=== PATIENT | female | born 1960 | race Caucasian/White ===

== ENCOUNTER → 2020-08-16 10:08 | Outpatient (BNVA) | payer OTHER, SELFPAY | PROVIDERS: Referring Provider Registered Nurse; Visit Provider Podiatrist Foot & Ankle Surgery | DX: M77.31 Calcaneal spur, right foot (principal); M77.32 Calcaneal spur, left foot | CPT/HCPCS: 73610 ==

== ENCOUNTER → 2020-09-27 11:13 | Outpatient (BNVA) | payer OTHER, SELFPAY | PROVIDERS: Visit Provider Podiatrist Foot & Ankle Surgery | DX: M77.31 Calcaneal spur, right foot (principal); M77.32 Calcaneal spur, left foot; Q82.5 Congenital non-neoplastic nevus; M79.673 Pain in unspecified foot | CPT/HCPCS: 73630 ==

== ENCOUNTER → 2020-10-11 15:22 | Outpatient (BNVA) | payer OTHER, SELFPAY | PROVIDERS: Visit Provider Podiatrist Foot & Ankle Surgery | DX: M19.079 Primary osteoarthritis, unspecified ankle and foot (principal); M20.21 Hallux rigidus, right foot; M77.31 Calcaneal spur, right foot; M92.61 Juvenile osteochondrosis of tarsus, right ankle; M89.8X7 Other specified disorders of bone, ankle and foot; M77.32 Calcaneal spur, left foot; M92.62 Juvenile osteochondrosis of tarsus, left ankle; Z20.822 Contact with and (suspected) exposure to COVID-19 | CPT/HCPCS: 87635 ==

== ENCOUNTER 2020-10-15 09:27 | Day surgery (SDC) | payer OTHER, SELFPAY ==
[2020-10-14 11:47] VITALS: BMI 34.6
[2020-10-15] VITALS (7 sets, daily range): BP systolic 165–204; BP diastolic 83–91; PULSE 74–88; RESP 12–19; TEMP 36.1–36.6; O2SAT 90–100
--- NOTE | 2020-10-15 | SCC_ITS ---
Procedure Done: Cheilectomy right foot. Hadley's resection with Achilles tendon debridement right lower extremity. < 1 seconds of fluoroscopic guidance, for a cumulative dose of 0.005 mGy, was provided to Dr. Latham by the radiology department. C-arm images of the RIGHT foot were saved for the patient's permanent record. [facility]
[2020-10-15] MEDS: sodium chloride 0.9% 1,000 ML 30 ML IV (10:02)
[2020-10-15] MEDS: scopolamine 1.5 Patch 1 PATCH TRANSDERMA (10:04)
[2020-10-15] MEDS: midazolam 1 mg/mL INJ 5 ML 5 MG IVP (10:26)
--- NOTE | 2020-10-15 10:35 | ANES.PREANE2 ---
Pre-Anesthetic Assessment Pre-Anesthetic Assessment: Height/Weight: Height 1.65 m Weight 94.347 kg Temp Pulse Resp BP Pulse Ox 97 F L 74 16 204/89 96 10/15/20 09:45 10/15/20 09:45 10/15/20 09:45 10/15/20 09:45 10/15/20 09:45 Preop Diagnosis: Hadley's deformity, Achilles tendinosis, hallux rigidus, exostosis, right Proposed Procedure: Operation Date: 10/15/20 11:05 Proposed Procedures p Hadley's resection with Achilles repair 43860, 99661, 92948, 33724 M76.821 M76.61 M92.61 M20.21(Right) - Nelson Latham DPM s Cheilectomy 89027, 21028, 72667, 24784 M76.821 M76.61 M92.61 M20.21(Right) - Nelson Latham DPM s Exostectomy 96655, 97753, 67925, 90311 M76.821 M76.61 M92.61 M20.21(Right) - Nelson Latham DPM s Flexor Hallucis Longus Tendon Transfer 76863, 47929, 04873, 19057 M76.821 M76.61 M92.61 M20.21(Right) - Nelson Latham DPM Familial anesthetic complications: None Was Beta Kiersten taken within 24 hours: N/A Was Clonidine taken within 24 hours: N/A Last intake: Intake Last Liquid Date 10/14/20 Last Liquid Time 23:00 Last Solid Date 10/14/20 Last Solid Time 23:00 Social: Social History: No alcohol and No tobacco Exam: Pre-Anes Outpt Exam: alert, oriented x 3, clear to auscultation bilaterally and regular rate & rhythm Airway: Cervical ROM: WNL MP: 2 Dentition: Full Anesthetic Plan: ASA status: 1 Anesthesia: General and Regional (specify below) Risk of > 500 ml blood loss (7ml/kg in children): No Meds/Allergies Current Medications: Current Medications Generic Name Dose Route Start Last Admin Trade Name Freq PRN Reason Stop Dose Admin Sodium Chloride 1,000 mls @ 30 ml s/hr 10/15/20 09:45 10/15/20 10:02 Sodium Chloride 0.9% IV 10/16/20 09:44 30 mls/hr .Q24H ANU Administration PFSH Anesthesia PFSH: Family History Other Hypertension Social History Alcohol intake: never Adopted: No Caregiver/support person: No Lives independently: No Household members: spouse Sexually active: Yes Current gender identity: Female Data Anesthesia Cardiac Studies: No Data to Display
--- NOTE | 2020-10-15 10:37 | ANES.PROC ---
Anesthesia Procedures Procedure/Date: 10/15/20 Nerve Block ^: Nerve Block 1: Main Anesthesia: general anesthesia Time Out Performed: Yes Consent: requested by attending/covering physician, from patient, from other, risks and benefits reviewed and patient agrees to proceed Nerve block location: popliteal (R) Anesthesia monitors applied: pulse oximetry, EKG, BP cuff and oxygen Nerve block position: supine Anesthetic Used: ropivicaine 0.5% and with decadron (4 mg) Amount of anesthesia used (mL): 30 Ultrasound used to: recognize landmarks Nerve Stimulator Used?: No Interscalene/Femoral BLK: 4 stimuplex 21 g needle used for position and inplane approach, visualize local anesthetic spread and no vascular puncture identified Injection: neg aspiration of heme Patient Tolerated Procedure: well and no complications Complications: none
--- NOTE | 2020-10-15 12:02 | P.HPUD_ITS ---
Surgery/Procedure H&P Update DATE OF PROCEDURE: October 15, 2020 DATE H&P PERFORMED: 09/27/20 H&P UPDATE INFORMATION: I have reviewed H&P completed within last 30 days, I have examined patient prior to procedure, No changes to prior documentation and H&P is in [facility] EMR on date indicated PREOP DIAGNOSIS: Hadley's deformity, Achilles tendinosis, hallux rigidus, exostosis, right PLANNED PROCEDURE: Operation Date: 10/15/20 11:05 Proposed Procedures p Hadley's resection with Achilles repair 39808, 58233, 82157, 66526 M76.821 M76.61 M92.61 M20.21(Right) - Nelson Latham DPM s Cheilectomy 44916, 32035, 10479, 30605 M76.821 M76.61 M92.61 M20.21(Right) - Nelson Latham DPM s Exostectomy 49989, 87781, 33655, 48115 M76.821 M76.61 M92.61 M20.21(Right) - Nelson Latham DPM s Flexor Hallucis Longus Tendon Transfer 36270, 17646, 31160, 32718 M76.821 M76.61 M92.61 M20.21(Right) - Nelson Latham DPM
--- NOTE | 2020-10-15 12:02 | W.PM.OPSUD ---
Surgery/Procedure H&P Update DATE OF PROCEDURE: October 15, 2020 DATE H&P PERFORMED: 09/27/20 H&P UPDATE INFORMATION: I have reviewed H&P completed within last 30 days, I have examined patient prior to procedure, No changes to prior documentation and H&P is in [facility] EMR on date indicated PREOP DIAGNOSIS: Hadley's deformity, Achilles tendinosis, hallux rigidus, exostosis, right PLANNED PROCEDURE: Operation Date: 10/15/20 11:05 Proposed Procedures p Hadley's resection with Achilles repair 41092, 87514, 78693, 68389 M76.821 M76.61 M92.61 M20.21(Right) - Nelson Latham DPM s Cheilectomy 08915, 51563, 08405, 38835 M76.821 M76.61 M92.61 M20.21(Right) - Nelson Latham DPM s Exostectomy 61483, 63676, 28261, 96208 M76.821 M76.61 M92.61 M20.21(Right) - Nelson Latham DPM s Flexor Hallucis Longus Tendon Transfer 65708, 90140, 61923, 96062 M76.821 M76.61 M92.61 M20.21(Right) - Nelson Latham DPM
[2020-10-15] MEDS: lidocaine 1% INJ 20 mL 10 ML INJECTION (13:00)
--- NOTE | 2020-10-15 14:12 | XR_ITS ---
WS: [id number] Right foot, 3 views, 10/15/2020 Clinical Data: post op Comparison: Right foot, 09/27/2020. Findings: There is been resection of the bunion of the head of the right first metatarsal. A fiberglass splint is supporting the foot. XR/XR foot RT min 3V* [id number] Impression: Bunionectomy of the head of the right first metatarsal.
--- NOTE | 2020-10-15 14:13 | PM.OP ---
Operative Report Date of procedure: October 15, 2020 Pre-op Diagnosis: Hadley's deformity, Achilles tendinosis, hallux rigidus, exostosis, right Post-op diagnosis: same Post-op Findings: Exostosis at the right first metatarsophalangeal joint with joint space narrowing. Hadley's deformity with Achilles tendinosis of the right lower extremity. Procedure Done: Cheilectomy right foot. Hadley's resection with Achilles tendon debridement right lower extremity. Implants: 3-0 Vicryl, 4-0 nylon, 3-0 nylon, Arthrex Achilles speed bridge Specimens removed/disposition: None Pathology: none sent Surgeon: Nelson Latham D.P.M. [employer] Man: Cornelio Anesthesia: General Estimated blood loss: Less than 20 mL Tourniquet time: 15-minute tourniquet time for cheilectomy right foot. 60-minute tourniquet time for Hadley's resection Achilles tendon debridement right lower extremity. IV fluids: None Urine output: None Complications: None Findings: Hallux rigidus, Achilles tendinosis and Hadley's all right lower extremity. Condition: stable Disposition: PACU Brief History: Patient has had progression of pain at her right first metatarsophalangeal joint decreased range of motion has pain with everyday standing and walking would like to have this corrected. Also has had a chronic pain to her right posterior Achilles and has failed conservative treatment measures as well as formal physical therapy wishing to discuss surgical treatment options. I recommended a cheilectomy as initial procedure with the understanding that there would be a progression of arthrosis necessitating additional surgery down the road. I also recommended a Hadley's resection and Achilles tendon debridement of the right lower extremity. Risks include pain, bleeding, numbness, infection, heart failure, tightness of the calf muscle, equinus, altered gait, altered mechanics, rupture of Achilles tendon, chronic swelling, need for physical therapy and need for additional surgical intervention. Patient is agreeable wishes to proceed. Informed consent signed by patient myself I initialed her lower extremity, Covid screening negative. Patient has been n.p.o. since midnight. No guarantees written, expressed or implied. Procedure: Under mild sedation the patient was brought to the operating room, of note patient received a popliteal block to the right lower extremity preoperatively per anesthesia. Patient remained on the gurney in supine position and the right lower extremity was scrubbed, prepped and draped utilizing normal aseptic technique. Timeout was performed. Anesthesia was administered by the anesthesia service prior to scrubbing and draping. Esmarch bandage utilized at the right foot and tourniquet at the right ankle inflated to 250 mmHg. Attention was directed to the dorsomedial aspect of the right first metatarsophalangeal joint where a linear longitudinal incision was made with a #15 blade through skin with dissection carried down through subcutaneous tissue to the layer of periosteum utilizing a combination of sharp and blunt technique. Care was taken to retract and preserve neurovascular tendinous structures. All bleeders were ligated and cauterized as necessary. Linear periosteal incision was made with dorsiflexion of the great toe to protect the articular surface. The capsular attachments were then reflected medially and laterally and a cheilectomy was performed with the oscillating saw and passed off the field and all rough edges were smoothed followed by resection of dorsal beaking at the dorsal proximal phalanx base. Incision was flushed with saline solution. Capsular structures closed with 3-0 Vicryl. Subcutaneous tissue closed with 3-0 Vicryl and skin closed with 4-0 nylon. Area was dressed with Adaptic, sterile 4 x 4, Kerlix and sterile Coban. Patient was then positioned on to the operating table in prone position and new sterile draping was performed. Patient's right lower extremity were scrubbed, prepped and draped using normal aseptic technique. Right foot was elevated and the tourniquet was inflated at the high calf to 250 mmHg. Curvilinear lazy S incision performed midline of the Achilles tendon coursing distally deviated medially then back centrally inferior to the Hadley's prominence. This was a full-thickness incision including the peritenon and reflected. The medial portion of the Achilles tendon as well as reflected of its attachment site with maintaining lateral attachment an oscillating saw utilized to resect the Hadley's resection bony resection was 3 cm wide by 3 cm long by 1 cm thick and all rough edges smoothed and all bony prominences smooth with a rasp. Next utilizing an Achilles speed bridge with 2 high to low the Achilles tendon was brought into reapposition of the posterior calcaneus with excellent tenderness to bone contact and Achilles out to proper length. Incision was flushed with saline solution and closed with 3-0 Vicryl with peritenon and subcutaneous tissue and 3-0 nylon with a combination of simple interrupted suture and horizontal mattress on skin. This was then dressed with jumpstart, 4 x 4, Kerlix followed by application of multilayer compressive Lawton splint. Tourniquet was deflated and a prompt hyperemic response was noted to the distal digits of the right foot. Patient tolerated the procedure and anesthesia well and was transferred to the PACU with vital signs stable and vascular status intact. Following a period of postoperative monitoring she will be discharged home was prescribed Percocet 10/325 to be taken judiciously as needed for pain. She is to remain strict nonweightbearing to the right lower extremity. She was given at home care instructions on discharge paperwork. Postop intraoperative and in PACU x-rays were taken and noted to have improved resection of Hadley's deformity.
--- NOTE | 2020-10-15 18:26 | ANE.PACU2 ---
Inpatient post-anesthesia follow up: Airway intact: Yes Vital signs: Temperature 97.8 F Pulse Rate 74 Respiratory Rate 18 Blood Pressure 171/83 Pulse Oximetry 90 Oxygen Delivery Me thod Room Air Oxygen Flow Rate 8 Fraction of Inspir ed Oxygen Hydration adequate: Yes Nausea and vomiting: No Pain level: 2 Mental status: Baseline
== END 2020-10-15 15:47 | disposition home or self-care (01) ==
PROVIDERS: Visit Provider Podiatrist Foot & Ankle Surgery
PROC: (CPT 27654; principal; 2020-10-15 10:55)
PROC: (CPT 28289; 2020-10-15 10:55)
PROC: (CPT 27691; 2020-10-15 10:55)
DX: M92.61 Juvenile osteochondrosis of tarsus, right ankle (principal); M76.61 Achilles tendinitis, right leg; M20.21 Hallux rigidus, right foot; M89.9 Disorder of bone, unspecified
CPT/HCPCS: 27654; 28118; 28289; 64450; 73630; 76000; 76942; 96365; C1713; J0690; J1100; J2250; J2405; J2704; J2795; J3010; J3490; J7030

== ENCOUNTER 2020-10-28 16:34 | Outpatient (CLI) | payer OTHER, SELFPAY | END 2020-10-28 16:35 | disposition home or self-care (01) | LOC: SPT 16:35 | PROVIDERS: Visit Provider Podiatrist Foot & Ankle Surgery | DX: Z46.89 Encounter for fitting and adjustment of other specified devices (principal); Z98.890 Other specified postprocedural states; S86.011D Strain of right Achilles tendon, subsequent encounter; X58.XXXD Exposure to other specified factors, subsequent encounter | CPT/HCPCS: 97760; L4361 ==

== ENCOUNTER → 2021-02-01 10:45 | Outpatient (BNVA) | payer OTHER, SELFPAY | PROVIDERS: Visit Provider Podiatrist Foot & Ankle Surgery | DX: Z01.818 Encounter for other preprocedural examination (principal); M92.62 Juvenile osteochondrosis of tarsus, left ankle; M92.61 Juvenile osteochondrosis of tarsus, right ankle; Z20.822 Contact with and (suspected) exposure to COVID-19 | CPT/HCPCS: 87635 ==

== ENCOUNTER 2021-02-04 06:06 | Day surgery (SDC) | payer OTHER, SELFPAY ==
[2021-02-03 14:45] VITALS: BMI 34.1
[2021-02-04] VITALS (7 sets, daily range): BP systolic 168–194; BP diastolic 72–98; PULSE 58–80; RESP 15–28; TEMP 36.3–36.8; O2SAT 94–100
--- NOTE | 2021-02-04 | SCC_ITS ---
Procedure Done: Haglunds Resection w Achilles repair left lower Extremity CPT 93414 1 second of fluoroscopic guidance, for a cumulative dose of 0.03 mGy, was provided to Dr. Latham by the radiology department. C-arm images of the LEFT foot were saved for the patient's permanent record. [facility]
--- NOTE | 2021-02-04 07:00 | XR_ITS ---
WS: [id number] LEFT FOOT: 2 VIEW(S) TECHNIQUE: AP and lateral. HISTORY: Postop Hadley's resection COMPARISON: 08/16/2020 Bony protrusion involving the posterior calcaneus and the enthesopathy at the Achilles tendon attachm ent have been surgically resected. There is a smooth resection site on the posterior calcaneus. Small amount of air in the soft tissues and edema. Moderate-sized calcaneal spur with calcification along the aponeurosis. Partial splint material along the plantar surface of the foot. XR/XR foot LT 2V [id number] IMPRESSION: 1. Interval resection of the bony protrusion along the posterior calcaneus and the enthesopathy of the Achilles tendon. 2. Satisfactory postoperative changes are noted in the soft tissues.
[2021-02-04] MEDS: sodium chloride 0.9% 1,000 ML 30 ML IV (07:51)
[2021-02-04] MEDS: scopolamine 1.5 Patch 1 PATCH TRANSDERMA (08:02)
--- NOTE | 2021-02-04 08:17 | P.ANESASSM_ITS ---
Pre-Anesthetic Assessment Pre-Anesthetic Assessment: Height/Weight: Height 1.65 m Weight 92.986 kg Temp Pulse Resp BP Pulse Ox 97.7 F 62 17 178/98 97 02/04/21 07:28 02/04/21 07:28 02/04/21 07:28 02/04/21 07:28 02/04/21 07:28 Preop Diagnosis: Hadley's deformity left Proposed Procedure: Operation Date: 02/04/21 07:55 Proposed Procedures p Haglunds Resection w Achilles repair left lower Extremity(Left) - Nelson Latham DPM s Poss Left Flexor Hallucis Longus Tendon Transder 33863 85588 M20.22 M92.61(Left) - Nelson Latham DPM Familial anesthetic complications: PONV Was Beta Kiersten taken within 24 hours: N/A Was Clonidine taken within 24 hours: N/A Last intake: Intake Last Liquid Date 02/03/21 Last Liquid Time 21:00 Last Solid Date 02/03/21 Last Solid Time 21:00 Social: Social History: No alcohol and No tobacco Exam: Pre-Anes Outpt Exam: alert, oriented x 3, clear to auscultation bila terally and regular rate & rhythm Airway: MP: 2 Dentition: Full Anesthetic Plan: ASA status: 1 Anesthesia: General and Regional (specify below) Risk of > 500 ml blood loss (7ml/kg in children): No Meds/Allergies Current Medications: Current Medications Generic Name Dose Route Start Last Admin Trade Name Freq PRN Reason Stop Dose Admin Sodium Chloride 1,000 mls @ 30 ml s/hr 02/04/21 07:45 02/04/21 07:51 Sodium Chloride 0.9% IV 02/05/21 07:44 30 mls/hr .Q24H ANU Administration PFSH Anesthesia PFSH: Family History Other Hypertension Social History Alcohol intake: never Adopted: No Caregiver/support person: No Lives independently: No Household members: spouse Sexually active: Yes Current gender identity: Female Data Anesthesia Cardiac Studies: No Data to Display
--- NOTE | 2021-02-04 08:17 | ANES.PROC ---
Anesthesia Procedures Procedure/Date: 02/04/21 Nerve Block ^: Nerve Block 1: Main Anesthesia: general anesthesia Time Out Performed: Yes Consent: requested by attending/covering physician, from patient, from other, risks and benefits reviewed and patient agrees to proceed Nerve block location: popliteal (R) Anesthesia monitors applied: pulse oximetry, BP cuff and oxygen Anesthetic Used: ropivicaine 0.5% and with decadron (4 mg) Amount of anesthesia used (mL): 30 Ultrasound used to: recognize landmarks Nerve Stimulator Used?: No Interscalene/Femoral BLK: 4 stimuplex 21 g needle used for position and inplane approach and visualize local anesthetic spread Injection: neg aspiration of heme Patient Tolerated Procedure: well Complications: none
--- NOTE | 2021-02-04 08:46 | W.PM.OPSUD ---
Surgery/Procedure H&P Update DATE OF PROCEDURE: February 04, 2021 DATE H&P PERFORMED: 02/01/21 H&P UPDATE INFORMATION: I have reviewed H&P completed within last 30 days, I have examined patient prior to procedure, No changes to prior documentation and H&P is in [facility] EMR on date indicated PREOP DIAGNOSIS: Hadley's deformity left PLANNED PROCEDURE: Operation Date: 02/04/21 07:55 Proposed Procedures p Haglunds Resection w Achilles repair left lower Extremity(Left) - Nelson Latham DPM s Poss Left Flexor Hallucis Longus Tendon Transder 28652 45959 M20.22 M92.61(Left) - Nelson Latham DPM
--- NOTE | 2021-02-04 08:47 | P.OP_ITS ---
Operative Report Date of procedure: February 04, 2021 Pre-op Diagnosis: Hadley's deformity left Post-op diagnosis: same Procedure Done: Haglunds Resection w Achilles repair left lower Extremity CPT 72525 Implants: Arthrex speed bridge, 4-0 Vicryl, 3-0 nylon Specimens removed/disposition: None Pathology: none sent Surgeon: Nelson Latham D.P.M. District Administrator: Lawson Anesthesia: General Estimated blood loss: 5 Tourniquet time: 44 IV fluids: 0 Urine output: 0 Complications: none Findings: None Condition: stable Disposition: PACU Brief History: Recalcitrant pain to insertion of Achilles tendon and osseous p rominence from Hadley's deformity to the left lower extremity failed conservative treatments with offloading via heel lift, open back shoe, eccentric loading, physical therapy, anti-inflammatories and stretching. Wishes to proceed with Hadley's resection and Achilles tendon debridement risks include pain, bleeding, numbness, infection, surgical site dehiscence, need for antibiotic therapies, wound care, shortening or lengthening of Achilles tendon and rupture of Achilles tendon with need for surgical intervention in the future. Patient wishes to proceed. Procedure: Under mild sedation the patient was brought to the operating room and placed on the operating table in prone position, popliteal block performed preoperatively per anesthesia left lower extremity. Patient's left lower extremity were scrubbed, prepped and draped using normal aseptic technique. Left thigh tourniquet inflated to 350 mmHg. Curvilinear lazy S incision perform ed midline of the Achilles tendon coursing distally deviated medially then back centrally inferior to the Hadley's prominence. This was a full-thickness incision including the peritenon and reflected. The medial portion of the Achilles tendon as well as reflected of its attachment site with maintaining lateral attachment an oscillating saw utilized to resect the Hadley's resection bony resection was 3 cm wide by 3 cm long by 1 cm thick and all rough edges smoothed and all bony prominences smooth with a rasp. Next utilizing an Achilles speed bridge with 2 high to low the Achilles tendon was brought into reapposition of the posterior calcaneus with excellent tenderness to bone contact and Achilles out to proper length. Incision was flushed with saline solution and closed with 4-0 Vicryl with peritenon and subcutaneous tissue and 3-0 nylon with a combination of simple interrupted suture and horizontal mattress on skin. This was then dressed with jumpstart, 4 x 4, Kerlix followed by application of multilayer compressive Lawton splint. Tourniquet was deflated and a prompt hyperemic response was noted to the distal digits of the left foot. Patient tolerated the procedure and anesthesia well and was transferred to the PACU with vital signs stable and vascular status intact. Following a period of postoperative monitoring she will be discharged home was prescribed Percocet 10/325 to be taken judiciously as needed for pain. She is to remain strict nonweightbearing to the left lower extremity. She was given at home care instructions on discharge paperwork. Postop intraoperative and in PACU x-rays were taken and noted to have improved resection of Hadley's deformity.
--- NOTE | 2021-02-04 12:25 | ANE.PACU2 ---
Inpatient post-anesthesia follow up: Airway intact: Yes Vital signs: Temperature 97.9 F Pulse Rate 58 Respiratory Rate 19 Blood Pressure 171/78 Pulse Oximetry 99 Oxygen Delivery Me thod Room Air Oxygen Flow Rate 5 Fraction of Inspir ed Oxygen Hydration adequate: Yes Nausea and vomiting: No Pain level: 2 Mental status: Baseline
== END 2021-02-04 12:32 | disposition home or self-care (01) ==
LOC: OR 06:06
PROVIDERS: Visit Provider Podiatrist Foot & Ankle Surgery
PROC: (CPT 27650; principal; 2021-02-04 07:55)
PROC: (CPT 28261; 2021-02-04 07:55)
DX: M92.62 Juvenile osteochondrosis of tarsus, left ankle (principal)
CPT/HCPCS: 27650; 64450; 73620; 76000; 76942; J0690; J1100; J2405; J2704; J2795; J3010; J3490; J7030

== ENCOUNTER 2021-02-21 15:38 | Outpatient (CLI) | payer OTHER, SELFPAY | END 2021-02-21 15:39 | disposition home or self-care (01) | LOC: SPT 15:39 | PROVIDERS: Visit Provider Podiatrist Foot & Ankle Surgery | DX: Z46.89 Encounter for fitting and adjustment of other specified devices (principal); M92.62 Juvenile osteochondrosis of tarsus, left ankle; S86.012D Strain of left Achilles tendon, subsequent encounter; X58.XXXD Exposure to other specified factors, subsequent encounter; Z98.890 Other specified postprocedural states | CPT/HCPCS: 97760; L3170; L4361 ==

== ENCOUNTER 2021-05-16 13:18 | Outpatient (CLI) | payer OTHER, SELFPAY | END 2021-05-16 13:19 | disposition home or self-care (01) | LOC: SPT 13:19 | PROVIDERS: Visit Provider Podiatrist Foot & Ankle Surgery | DX: Z46.89 Encounter for fitting and adjustment of other specified devices (principal); M79.672 Pain in left foot | CPT/HCPCS: 97760; L4397 ==

== ENCOUNTER → 2022-02-22 13:52 | Outpatient (BNVA) | payer OTHER, SELFPAY | PROVIDERS: Visit Provider Podiatrist Foot & Ankle Surgery | DX: M25.572 Pain in left ankle and joints of left foot (principal); M79.672 Pain in left foot | CPT/HCPCS: 73610 ==

== ENCOUNTER → 2022-08-28 09:53 | Outpatient (BNVA) | payer OTHER, SELFPAY | PROVIDERS: Visit Provider Student in an Organized Health Care Education/Training Program | DX: M79.641 Pain in right hand (principal); M25.741 Osteophyte, right hand | CPT/HCPCS: 73130 ==

== ENCOUNTER 2022-09-13 12:57 | Outpatient (CLI) | payer OTHER, SELFPAY ==
--- NOTE | 2022-09-13 13:30 | CTR_ITS ---
PROCEDURE INFORMATION: Exam: CT Right Upper Extremity Without Contrast, Hand Exam date and time: 09/13/2022 1:13 PM Age: 61 years old Clinical indication: Pain; Patient HX: Lump in metacarpal area of right hand x several months-bb TECHNIQUE: Imaging protocol: Computed tomography of the right upper extremity without contrast. Exam focused on the hand. Radiation optimization: All CT scans at this facility use at least one of these dose optimization techniques: automated exposure control; mA and/or kV adjustment per patient size (includes targeted exams where dose is matched to clinical indication); or iterative reconstruction. REPORTING DATA: Count of CT and Cardiac NM exams in prior 12 months: This patient has received 0 known CTs and 0 known cardiac nuclear medicine studies in the 12 months prior to the current study. COMPARISON: CR XR hand RT min 3V* [id number] 08/28/2022 10:15 AM RADIATION DOSE METRICS: Total DLP (mGy-cm): 126.24 FINDINGS: Bones/joints: No acute fracture or dislocation. Dorsal symptom marker overlies os styloideum. Soft tissues: Normal. CT/CT hand RT wo con* [id number] IMPRESSION: Carpal boss from os styloideum.
== END 2022-09-13 12:58 | disposition home or self-care (01) ==
PROVIDERS: PCP Student in an Organized Health Care Education/Training Program; Visit Provider Student in an Organized Health Care Education/Training Program
DX: M25.741 Osteophyte, right hand (principal)
CPT/HCPCS: 73200

== ENCOUNTER → 2023-01-25 14:14 | Outpatient (BNVA) | payer OTHER, SELFPAY | PROVIDERS: PCP Student in an Organized Health Care Education/Training Program; Visit Provider Podiatrist Foot & Ankle Surgery | DX: L85.1 Acquired keratosis [keratoderma] palmaris et plantaris; M79.671 Pain in right foot | CPT/HCPCS: 73630 ==

== ENCOUNTER → 2024-05-16 10:11 | Outpatient (BNVA) | payer OTHER, SELFPAY | PROVIDERS: PCP Student in an Organized Health Care Education/Training Program; Visit Provider Physician Assistant | DX: M25.741 Osteophyte, right hand (principal); G56.03 Carpal tunnel syndrome, bilateral upper limbs | CPT/HCPCS: 73130 ==

== ENCOUNTER → 2024-05-29 15:03 | Outpatient (BNVA) | payer MEDICARE, OTHER, SELFPAY | PROVIDERS: PCP Student in an Organized Health Care Education/Training Program; Referring Provider Physician Assistant; Visit Provider Psychiatry & Neurology Neurology | DX: G56.03 Carpal tunnel syndrome, bilateral upper limbs (principal) | CPT/HCPCS: 95913 ==

== ENCOUNTER → 2024-06-18 13:19 | Outpatient (BNVA) | payer MEDICARE, SELFPAY | PROVIDERS: PCP Student in an Organized Health Care Education/Training Program; Visit Provider Student in an Organized Health Care Education/Training Program | DX: G56.01 Carpal tunnel syndrome, right upper limb (principal); M25.741 Osteophyte, right hand | CPT/HCPCS: 99214 ==

== ENCOUNTER 2024-07-04 09:31 | Day surgery (SDC) | payer MEDICARE, SELFPAY ==
[2024-07-04] VITALS (7 sets, daily range): BP systolic 128–212; BP diastolic 58–106; PULSE 59–63; RESP 16–18; TEMP 36.1–36.3; O2SAT 94–100; BMI 29.2
--- NOTE | 2024-07-04 08:13 | XR_ITS ---
WS: [id number] Exam: XR hand RT 2V [id number] Date/Time of Exam: 07/04/2024 8:13 AM Reason For Exam: OR PIC, HAND EXCISION C-arm limited images of the RIGHT hand are submitted. Images were obtained for intraoperative purposes.
--- NOTE | 2024-07-04 09:57 | ECG_ITS ---
[email or web address] Test Date: 2024-07-04 Pat Name: Tamela Loera Department: Room: Gender: Female Certified Nursing Assistant: : [id number] Requested By: Vicente Alanis Order Number: [id number] Reading MD: AMAYA VALENZUELA Measurements Intervals Maddock Rate: 63 P: 65 SC: 179 QRS: -4 QRSD: 114 T: 16 QT: 425 QTc: 436 Interpretive Statements SINUS RHYTHM INCOMPLETE RIGHT BUNDLE BRANCH BLOCK [90+ ms QRS DURATION, TERMINAL R IN V1/V2, 40+ ms S IN I/aVL/V4/V5/V6] No previous ECG available for comparison Electronically Signed On 07-05-2024 16:26:07 CDT by AMAYA VALENZUELA [email or web address]
[2024-07-04] MEDS: ketorolac 30 mg/mL INJ IVP (10:08)
[2024-07-04] MEDS: acetaminophen 1,000 MG/100 ML PIGGYBACK 400 MG IV (10:08)
[2024-07-04] MEDS: sodium chloride 0.9% 1,000 ML 30 ML IV (10:08)
[2024-07-04] MEDS: scopolamine 1 mg PATCH 1 PATCH TRANSDERMA (10:12)
--- NOTE | 2024-07-04 10:53 | W.PM.OPSUD ---
Surgery/Procedure H&P Update DATE OF PROCEDURE: July 04, 2024 DATE H&P PERFORMED: 06/18/24 H&P UPDATE INFORMATION: I have reviewed H&P completed within last 30 days, I have examined patient prior to procedure and No changes to prior documentation PREOP DIAGNOSIS: Right hand metacarpal boss, right carpal tunnel syndrome PRIMARY INDICATION FOR PROCEDURE: Right hand metacarpal boss, right carpal tunnel syndrome PLANNED PROCEDURE: Operation Date: 07/04/24 11:20 Proposed Procedures p hand metacarpal boss excision(Right) - DO vivek Nix Carpal Tunnel Release(Right) - Vicente Alanis DO
[2024-07-04] MEDS: ceFAZolin 2,000 MG in sodium chloride 0.9% (plus) 50 ML 100 MG IV (12:51)
[2024-07-04] MEDS: sodium bicarbonate 4.2% 0.5 mEq/mL SDV 5mL XX (13:18)
[2024-07-04] MEDS: lidocaine-epi 1% PF 1:200,000 30 mL SDV INJECTION (13:19)
[2024-07-04] MEDS: ROPivacaine 0.5% SDV 30 mL 150 MG INJECTION (13:20)
--- NOTE | 2024-07-04 13:40 | ANES.PREANE2 ---
Pre-Anesthetic Assessment Height/Weight: Height 1.65 m Weight 79.832 kg Temp Pulse Resp BP Pulse Ox O2 Del Method 97.2 F L 60 18 212/106 98 Room Air 07/04/24 09:50 07/04/24 09:50 07/04/24 09:50 07/04/24 09:50 07/04/24 09:50 07/04/24 09:50 Preop Diagnosis: Right hand metacarpal boss, right carpal tunnel syndrome Operation Date: 07/04/24 11:20 Proposed Procedures p hand metacarpal boss excision(Right) - Vicente Annabelle, DO s Carpal Tunnel Release(Right) - Vicente Annabelle, DO Last intake: Intake Last Liquid Date 07/03/24 Last Liquid Time 20:30 Last Solid Date 07/03/24 Last Solid Time 20:30 Social No alcohol and No tobacco Airway Submandibular: within normal limits Cervical ROM: within normal limits Mallampati: Class II History/ROS No significant history except as noted CV/HEM Hypertension (untreated; pt refuses to take meds) Anesthetic Plan ASA status: 3 Anesthesia: General Medications/Allergies Home Medications ?Medication ?Instructions ?Recorded ?Confirmed ?Last Taken ?Type No Known Home Medications 07/03/24 07/03/24 Unknown History Allergies Allergy/AdvReac Type Severity Reaction Status Date / Time diphenhydramine (From Allergy ADR-Dizzine Verified 07/03/24 09:19 Benadryl) ss Current Medications Generic Name Dose Route Start Last Admin Trade Name Freq PRN Reason Stop Dose Admin Sodium Chloride 1,000 mls @ 30 mls/hr 07/04/24 09:45 07/04/24 10:08 Sodium Chloride 0.9% IV 07/05/24 09:44 30 mls/hr .Q24H ANU Administration PFSH Anesthesia Family History Other Hypertension Social History Smoking and tobacco/nicotine status: never used tobacco/nicotine Alcohol intake: never Substance/Drug Use: never Adopted: No Caregiver/support person: No Lives independently: No Household members: spouse Sexually active: Yes Do you think of yourself as: Straight/Heterosexual Current gender identity: Female
--- NOTE | 2024-07-04 14:16 | P.BOP_ITS ---
Date of Procedure: 07/04/2024 Surgeon: Vicente Alanis DO Executive Sales Manager(s): None Procedure(s) performed: Right carpal tunnel release Right hand second metacarpal boss excision Right hand third metacarpal boss excision Findings of the procedure(s): Underwent procedure as planned without issues or complications. Patient was found to have bossing of the second metacarpal CMC and underwent excision of both the 2nd and 3rd confirmation with x-rays as well as we sent the excised boss bone for specimen. Underwent rest of procedure as planned without issues or complications placed in a volar splint taken to PACU in stable condition Estimated blood loss: 5 mL Specimen(s) removed: 2nd and 3rd metacarpal boss excisions Post-operative diagnosis: Right carpal tunnel syndrome, right hand second metacarpal boss, right hand third metacarpal
--- NOTE | 2024-07-04 14:16 | PM.OP ---
Operative Report Date of procedure: July 04, 2024 Surgeon: Vicente lAanis DO Procedure: Preop Diagnosis: Right Carpal Tunnel Syndrome Right hand metacarpal boss Post-op diagnosis: Same Procedure done: 1. Right carpal tunnel release 2. Right hand second metacarpal boss excision 3. Right hand third metacarpal boss excision Surgeon: Vicente Alanis DO Anesthesia: MAC (Local) Estimated blood loss: [5 ]mL Tourniquet time [37 ]minutes IV fluids: See anesthesia record Complications: None Findings: See operative report narrative Condition: stable Disposition: same day Brief History: Patient is a pleasant [63 ]year-old [Female ] with right carpal tunnel syndrome and a right hand metacarpal boss confirmed on CT scan. CT scan does demonstrate prominent third metacarpal boss but there does appear to be some developing second metacarpal boss as well at the 2nd and 3rd CMC and base of the metacarpal area consistent with metacarpal bossing. Patient has been worked up in the outpatient setting findings and physical examination consistent with this. Patient nerve conduction studies consistent with carpal tunnel syndrome. We detailed out patient's risk benefits complication alternatives with surgical and nonsurgical treatment options. Through shared decision making, patient agrees to proceed with surgical intervention of the right carpal tunnel release and right hand metacarpal boss excision. Patient understands and agrees with current plan. All questions answered. Patient elects to proceed with surgical intervention. Procedure: Patient seen and evaluated in the preoperative holding area. Consent was reviewed and signed with patient. Correct extremity was marked. Patient was seen evaluated by the anesthesia department once cleared for surgery was brought back to the operative suite. Patient was kept on [facility] in supine position all bony prominences were well-padded patient properly secured to the bed. Right upper extremity was then placed onto an armboard. A nonsterile tourniquet was applied to the Right upper arm. Patient underwent anesthesia per the anesthesia department. Patient's Right upper extremity was then prepped and draped in standard orthopedic fashion. Final timeout performed. Patient received appropriate preoperative antibiotics. Under sterile aseptic technique patient received local anesthesia over the preplanned carpal tunnel incision site and dorsal incision directly over the metacarpal boss. Esmarch was used to exsanguinate the Right upper extremity and tourniquet was insufflated to 250 mmHg. A standard mini open Right carpal tunnel incision was made. Starting distally at Dukes's cardinal line in line with the fourth ray extending proximally distal to the wrist crease centered over the carpal tunnel. Sharp scalpel incision was made through skin and subcutaneous tissue. Self-retaining retractor was placed and the palmar fascia was identified. This was then split longitudinally and direct visualization of the transverse carpal ligament was then made. I then utilizing scalpel feathered through the transverse carpal ligament until I entered the floor of the transverse carpal tunnel ligament into the carpal tunnel. Next I switched to dissection scissors and completed my release of the transverse carpal ligament distally with care to protect the recurrent motor branch. I completely released into the palmar fat and until no entrapment was noted distally. Care was made to protect the superficial palmar arch during my distal dissection. Next I utilized a nasal speculum placed on top of the transverse carpal ligament and utilize this to retract the subcutaneous fat and tissue and under direct loupe magnification was able to identify the transverse carpal ligament. Next I then protected the contents of the carpal tunnel and subsequently utilizing dissection scissors under loupe magnification completely released the transverse carpal ligament proximally into the antebrachial fascia. Care was made to protect the palmar cutaneous branch by keeping my scissors curved ulnarly. Once completely released, I then placed my [place] and had appropriate decompression of the carpal tunnel proximally as well as distally. I then inspected the contents of the carpal tunnel which showed an hourglass shape of the median nerve showing its compression. No masses were noted. Tendons appeared healthy. Wound was then thoroughly irrigated. Wet Ray-Sol was placed in wound bed and then focused my attention towards the right hand dorsal metacarpal bossing. Patient palpable prominent metacarpal bossing over the third and there did have prominence over the second. I centered my longitudinal incision between both of the sharp Incision was made through skin only switch to Littler dissection scissors protecting neurovascular structures then subsequently dissected the extensor tendons and protected these by my assistant secretary of the case and then came down immediately over the third metacarpal boss. At this point in time utilized sharp scalpel excision mobilized periosteum around this had a good field of view and then at this point in time confirmed this with fluoroscopic imaging using mini C arm to confirm the third metacarpal boss. At this point in time I then utilized a small osteotome to excise the metacarpal boss and then utilized a rongeur to complete the excision and then utilized a rasp to smooth this out this was then thrown into a specimen cup for specimen. I then brought in C arm once again and confirmed that this was now a smooth excision of the third metacarpal boss. I then mobilized my incision and protected the right extensor mechanisms and came over the second metacarpal where there was not as prominent but still in metacarpal bossing and bony prominence over the second metacarpal and CMC joint. At this point in time once again show scalpel incision was made directly over this area of mobilized periosteum and then utilizing a small osteotome and rongeur and rasp to smooth out and excised the boss and sent this into specimen of the second metacarpal. At this point in time I took multiple fluoroscopic imaging once again confirming excision of the metacarpal bossing this under digital palpation was now smooth and no longer had any prominence over the 2nd and 3rd metacarpal. This completed my procedure tourniquet was deflated third irrigation performed. Hemostasis satisfactory with bipolar electrocautery. I then closed the incisions with nylon suture. Xeroform 4 x 4's and a bulky soft dressing was applied and a volar splint applied. Patient was then awakened from anesthesia and taken to PACU in stable condition. Patient tolerated procedure without complications. Disposition: Patient taken to PACU in stable condition recovering well. Dressing clean dry and intact. Patient will receive appropriate discharge instructions as well as pain medication postoperatively. Patient to maintain splint until follow-up. Patient to follow-up with me in the office in 2 weeks. They understand they may be nonweightbearing to the right hand. Patient should keep incision clean dry and intact. Patient understands if any questions or concerns may contact the office.
== END 2024-07-04 15:10 | disposition home or self-care (01) ==
PROVIDERS: PCP Student in an Organized Health Care Education/Training Program; Visit Provider Student in an Organized Health Care Education/Training Program
PROC: (CPT 26230; principal; 2024-07-04 11:10)
PROC: (CPT 64721; 2024-07-04 11:10)
DX: G56.01 Carpal tunnel syndrome, right upper limb (principal); M25.741 Osteophyte, right hand; I10 Essential (primary) hypertension; Z88.8 Allergy status to other drugs, medicaments and biological substances; Z91.148 Patient's other noncompliance with medication regimen for other reason
CPT/HCPCS: 26230; 64721; 73120; 76000; 88307; 88311; 93005; J0131; J0690; J1885; J2250; J2704; J2795; J3010; J7030; J9999

== ENCOUNTER 2024-07-16 11:24 | Outpatient (RCR) | payer MEDICARE, SELFPAY | END 2024-07-26 23:59 | disposition home or self-care (01) | LOC: SOT 11:24 | PROVIDERS: PCP Student in an Organized Health Care Education/Training Program; Visit Provider Physician Assistant | DX: G56.02 Carpal tunnel syndrome, left upper limb (principal); Z98.890 Other specified postprocedural states; Z46.89 Encounter for fitting and adjustment of other specified devices; G56.01 Carpal tunnel syndrome, right upper limb | CPT/HCPCS: 97110; 97165 ==

== ENCOUNTER 2024-07-16 14:36 | Outpatient (CLI) | payer MEDICARE, SELFPAY | END 2024-07-16 14:37 | disposition home or self-care (01) | LOC: SPT 14:37 | PROVIDERS: PCP Student in an Organized Health Care Education/Training Program; Visit Provider Physician Assistant | DX: Z46.89 Encounter for fitting and adjustment of other specified devices (principal); G56.01 Carpal tunnel syndrome, right upper limb | CPT/HCPCS: 99024; L3908 ==

== ENCOUNTER 2024-07-27 05:00 | Outpatient (RCR) | payer MEDICARE, SELFPAY | END 2024-08-25 23:59 | disposition home or self-care (01) | LOC: SOT 05:00 | PROVIDERS: PCP Student in an Organized Health Care Education/Training Program; Visit Provider Physician Assistant | DX: G56.02 Carpal tunnel syndrome, left upper limb (principal) | CPT/HCPCS: 97022; 97110; 97140 ==

== ENCOUNTER 2024-08-26 05:00 | Outpatient (RCR) | payer MEDICARE, SELFPAY | END 2024-09-25 23:59 | disposition home or self-care (01) | LOC: SOT 05:00 | PROVIDERS: Visit Provider Physician Assistant | DX: G56.02 Carpal tunnel syndrome, left upper limb (principal) | CPT/HCPCS: 97022; 97110; 97140 ==

== ENCOUNTER → 2024-08-27 10:35 | Outpatient (BNVA) | payer MEDICARE, SELFPAY | PROVIDERS: Visit Provider Physician Assistant | DX: Z98.890 Other specified postprocedural states (principal) | CPT/HCPCS: 99024; 99213 ==